=== PATIENT | female | born 1990 | race Caucasian/White ===

== ENCOUNTER 2022-02-05 15:50 | Emergency (ER) | payer BC, SELFPAY ==
[2022-02-05 16:05] VITALS: BP 144/92; PULSE 93; RESP 16; TEMP 36.6; O2SAT 99
--- NOTE | 2022-02-05 16:38 | ED.SKABFB ---
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 Reports its been there for 1 month and will not heal. She reports that every once in a while it drained white milky fluid, also reports that it bleeds every once in a while. She denies fever, body aches, chills, sweats, surrounding redness. MD complaint: abscess/boil Related Data Allergies Allergy/AdvReac Type Severity Reaction Status Date / Time No Known Allergies Allergy Unverified 02/05/22 16:06 Review of Systems Review of Systems: CONSTITUTIONAL: Denies malaise, chills, sweats, or fever. EYES: Denies redness, or discharge. ENT: Denies rhinorrhea, congestion, swollen lips, swollen tongue CARDIOVASCULAR: Denies chest pain, palpitations, or edema. RESPIRATORY: Denies cough or dyspnea. GASTROINTESTINAL: Denies abdominal pain, nausea, vomiting SKIN: Reports red bump on the back of left leg for one month with occasional drainage MUSCULOSKELETAL: Denies joint pain or myalgia. NEUROLOGIC: Denies headache. All systems reviewed & are unremarkable except as noted in HPI and below PMFSH Comments At time of signature, agree with nursing past medical, surgical, social and family history. There is no relevant family history pertinent to the presenting complaint Exam Narrative: GENERAL: Well-appearing, well-nourished, and in no acute distress. HEAD: Normocephalic, atraumatic. EYES: PERRLA, conjunctivae clear ENT: Mucous membranes moist. NECK: Supple. No lymphadenopathy CHEST: Clear to auscultation. No respiratory distress. HEART: Regular rate and rhythm. SKIN: Warm, dry. 2 cm raised erythematous bump to the back of the leg with a central scab, no surrounding erythema, edema or induration noted., No fluctuation, no current drainage NEURO: Alert and oriented x3. PSYCH: Normal mood and affect Course Course Emergency Course: Patient is aware of diagnosis, understands and agrees to treatment plan. Anticipatory guidance given. Patient agrees to follow-up as directed and is aware of reasons to seek care at the emergency department. Portions of this record may have been created with voice recognition software Level of Care: Express Care Visit Vital Signs Vital signs: Vital Signs Temperature 97.8 F 02/05/22 16:05 Pulse Rate 93 02/05/22 16:05 Respiratory Rate 16 02/05/22 16:05 Blood Pressure 144/92 H 02/05/22 16:05 Pulse Oximetry 99 02/05/22 16:05 Oxygen Delivery Room Air 02/05/22 16:05 Temperature 97.8 F 02/05/22 16:05 Pulse Rate 93 02/05/22 16:05 Respiratory Rate 16 02/05/22 16:05 Blood Pressure 144/92 H 02/05/22 16:05 Pulse Oximetry 99 02/05/22 16:05 Oxygen Delivery Room Air 02/05/22 16:05 Reviewed. MDM - Skin/Abscess/Foreign Bdy MDM Narrative Medical decision making narrative: Exam findings show no acute concerns or changes; patient is non-toxic appearing and is in no distress. Patient is appropriate for outpatient treatment and follow-up. Differential Diagnosis Differential diagnosis: Likely abscess of skin or subcutaneous tissue, cellulitis, insect bites and contact dermatitis Critical Care Time Critical Care Time Critical Care Time: No Discharge Plan Discharge Clinical Impression: Hair follicle infection Patient Disposition: Home, Self-Care Condition: Stable Instructions: Antibiotic Form Additional Instructions: Apply moist heat 3-4 times daily for 10-15 minutes. Take Motrin 600mg every 8 hours with food for pain. Please take Antibiotics as directed, apply prescribed cream if you experience any worsening redness, swelling, streaking (red lines), fever or chills plea
== END 2022-02-05 16:54 | disposition home or self-care (01) ==
PROVIDERS: Emergency Provider Nurse Practitioner
DX: L73.9 Follicular disorder, unspecified (principal)
CPT/HCPCS: 99203; G0463

== ENCOUNTER 2022-08-31 18:54 | Emergency (ER) | payer BC, SELFPAY ==
[2022-08-31 18:55] VITALS: BP 136/85; PULSE 100; RESP 20; TEMP 36.7; O2SAT 99
--- NOTE | 2022-08-31 19:24 | ED.URI ---
HPI - URI/Sore Throat General Chief Complaint: Upper Respiratory Infection Stated Complaint: sore throat Time Seen by Provider: 08/31/22 19:00 Source: patient Mode of arrival: ambulatory Limitations: no limitations History of Present Illness HPI Narrative: Charu is a 32-year-old female patient presenting to the clinic today with complaints of a sore throat x1 day. She reports she was notified today that her son tested positive for strep. States that she developed a little bit of a sore throat today however she denies any fever, chills, body aches, cough, or nasal congestion. MD elicited complaint: sore throat Related Data Home Medications Medication Instructions Recorded Confirmed No Home Medications 08/31/22 08/31/22 Allergies Allergy/AdvReac Type Severity Reaction Status Date / Time No Known Allergies Allergy Verified 08/31/22 19:02 Review of Systems Review of Systems: Pertinent positives per HPI. Patient denies any fever, chills, rash, headache, visual changes, dizziness, cough, shortness of breath, chest pain, palpitations, nausea, vomiting, diarrhea, constipation, abdominal pain, or any urinary issues. PMFSH Comments At the time of my signature, I reviewed and agree with the nursing past medical, surgical, social, and family history. There is no relevant family history pertinent to the patient complaint. Exam Narrative: General: Well-developed, well nourished, in no apparent distress Head: Normocephalic, atraumatic Eyes: Pupils equally round and reactive to light bilaterally, EOM intact, sclera and conjunctive clear, no discharge, lids normal Ears: TMs intact and clear, ear canals clear, no drainage, grossly hearing normal. Nose: Nares patent, no discharge, no inflammation, no sinus tenderness. Mouth: Oral pharynx without lesions or masses, good dentition, MMM. Oropharynx mildly red without tonsillar swelling Neck: Supple, trachea midline, no enlargement of anterior or posterior cervical nodes, no thyroid masses or goiter palpable. Cardio: Regular rate and rhythm, s1 and s2 normal, no murmur appreciated. Resp: Clear to auscultation bilaterally, no rhonchi, rales, wheezing or rubs Course Course Emergency Course: Portions of this record may have been created with voice recognition software. Level of Care: Express Care Visit Vital Signs Vital signs: Vital Signs Temperature 36.7 C 08/31/22 18:55 Pulse Rate 100 08/31/22 18:55 Respiratory Rate 20 08/31/22 18:55 Blood Pressure 136/85 08/31/22 18:55 Pulse Oximetry 99 08/31/22 18:55 Oxygen Delivery Room Air 08/31/22 18:55 Temperature 36.7 C 08/31/22 18:55 Pulse Rate 100 08/31/22 18:55 Respiratory Rate 20 08/31/22 18:55 Blood Pressure 136/85 08/31/22 18:55 Pulse Oximetry 99 08/31/22 18:55 Oxygen Delivery Room Air 08/31/22 18:55 Vital signs reviewed MDM - URI/Sore Throat MDM Narrative Medical decision making narrative: At the time of the patient is resting comfortably on the exam table. Strep swab was negative in the clinic today. I suspect patient has a pharyngitis with strep exposure . will send culture off and if this comes back positive we will place the patient on antibiotics at that time. Supportive measures were discussed with the patient and she voiced understanding of discharge instructions and agrees to treatment plan. Differential Diagnosis Differential diagnosis: Likely upper respiratory infection, otitis media, sinusitis, viral infection, bronchitis, influenza, pharyngitis and other Lab Data Labs: Strep Screen Presumptive Negative *(Reference Range: Negative)* Discharge Plan Discharge Clinical Impression: Pharyngitis Patient Disposition: Home, Self-Care Condition: Stable Instructions: Antibiotic Form, Pharyngitis (ED) Additional Instructions: Strep screen was negative in the clinic today. We will send
== END 2022-08-31 19:27 | disposition home or self-care (01) ==
PROVIDERS: Emergency Provider Nurse Practitioner Family; PCP Family Medicine
DX: J02.9 Acute pharyngitis, unspecified (principal)
CPT/HCPCS: 87081; 87880; 99213; G0463